=== PATIENT | female | born 2000 | race Two or more races ===

== ENCOUNTER 2020-12-11 11:59 | Emergency (ER) | payer SELFPAY ==
[~2020-12-11] VITALS: Ht 149.9 cm; Wt 63.6 kg
[2020-12-11] MEDS ORDERED: IV NORMAL SALINE 1000ML BAG 1,000 ML IV SCH (13:30)
[2020-12-11] MEDS ORDERED: FAMOTIDINE 20 MG/2 ML VIAL IVP ONE (13:30)
[2020-12-11 13:36] LABS: BILIRUBIN,URINE NEGATIVE (NEG); CLARITY,URINE CLEAR; COLOR,URINE YELLOW; NITRITE,URINE NEGATIVE (NEG); PH,URINE 7.5 (<5.0-8.0); PROTEIN,URINE NEGATIVE (NEG-TRACE); UROBILINOGEN,URINE 0.2 mg/dL (0.2 mg/dL)
[2020-12-11 13:47] LABS: BACTERIA,URINE 0 /HPF (0-FEW); RBC,URINE 0 /HPF (0-2); WBC,URINE OCC /HPF (0-4)
--- NOTE | 2020-12-11 13:57 | PHYS DOC ---
Past Medical History Past Medical History: GERD ([facility] [employer]) Past Surgical History: No Surgical History (SIOBHAN TADEO APRN) Smoking Status: Never Smoker Alcohol Use: None (SIOBHAN TADEO APRN) General Adult EDM: Chief Complaint: ABDOMINAL PAIN HPI: HPI: Patient is a 20 year old female who presents with for the last 10 months she has had off-and-on intermittent cramping epigastric pain that radiates to the left abdomen around to her back. She states it sometimes wakes her up out of her sleep and can happen at any moment. She states eating does not necessarily make it hurt. Patient states that when she was she was on medication for acid reflux. She stated that this pain started after she stopped taking that medication. She states that at times she will get nauseated with it too. She states that she is also worried because she has not had a since September. She is not on any kind of controls. She states that this time she has no pain. Patient denies fever, urinary symptoms, dizziness, headache, chest pain, shortness of air, vomiting, diarrhea, constipation, drug use, alcohol use. ([facility] [employer]) Review of Systems: Review of Systems: Constitutional: Denies fever or chills. [] Eyes: Denies change in visual acuity. [] HENT: Denies nasal congestion or sore throat. [] Respiratory: Denies cough or shortness of breath. [] Cardiovascular: Denies chest pain or edema. [] GI: + abdominal pain, +nausea, denies vomiting, bloody stools or diarrhea. [] : Denies dysuria. + No period since September[] Musculoskeletal: +Left mid back pain or denies joint pain. [] Integument: Denies rash. [] Neurologic: Denies headache, focal weakness or sensory changes. [] Endocrine: Denies polyuria or polydipsia. [] Lymphatic: Denies swollen glands. [] Psychiatric: Denies depression or anxiety. [] ([facility]OB[facility]AN TADEO APRN) Heart Score: Risk Factors: Risk Factors: DM, Current or recent (<one month) smoker, HTN, HLP, family history of CAD, obesity. Risk Scores: Score 0 - 3: 2.5% MACE over next 6 weeks - Discharge Home Score 4 - 6: 20.3% MACE over next 6 weeks - Admit for Clinical Observation Score 7 - 10: 72.7% MACE over next 6 weeks - Early Invasive Strategies (SIOBHAN TADEO APRN) Current Medications: Current Medications Medications (Trade) Dose Ordered Sig/Laith Start Time Stop Time Status Last Admin Dose Admin Famotidine (Pepcid Vial) 20 mg 1X ONCE 12/11/20 13:30 12/11/20 13:32 DC Sodium Chloride 1,000 ml @ 1,000 mls/hr Q1H 12/11/20 13:30 12/11/20 14:29 (SIOBHAN TADEO APRN) Allergies: Allergies: Allergies Coded Allergies Type Severity Reaction Last Updated Verified No Known Drug Allergies 12/11/20 No (SIOBHAN TADEO APRN) Physical Exam: PE: Constitutional: Well developed, well nourished, no acute distress, non-toxic appearance. [] HENT: Normocephalic, atraumatic, bilateral external ears normal, oropharynx moist, no oral exudates, nose normal. [] Eyes: PERRLA, EOMI, conjunctiva normal, no discharge. [] Neck: Normal range of motion, no tenderness, supple, no stridor. [] Cardiovascular:Heart rate regular rhythm, no murmur [] Lungs & Thorax: Bilateral breath sounds clear to auscultation [] Abdomen: Bowel sounds normal, soft, epigastric tenderness, no masses, no p ulsatile masses. [] Skin: Warm, dry, no erythema, no rash. [] Back: No tenderness, no CVA tenderness. [] Extremities: No tenderness, no cyanosis, no clubbing, ROM intact, no edema. [] Neurologic: Alert and oriented X 3, normal motor function, normal sensory function, no focal deficits noted. [] Psychologic: Affect normal, judgement normal, mood normal. [] (SIOBHAN TADEO APRN) Current Patient Data: Labs: Laboratory Tests Test 12/11/20 13:14 12/11/20 13:17 Urine Collection Type Unknown Urine Color Yellow Urine Clarity Clear Urine pH 7.5 (<5.0-8.0) Urine Specific Elton 1.020 (1.000-1.030) Urine Protein Negative mg/dL (NEG-TRACE) Urine Glucose (UA) Negative mg/dL (NEG) Urine Ketones (Stick) Negative mg/dL (NEG) Urine Blood Negative (NEG) Urine Nitrite Negative (NEG) Urine Bilirubin Negative (NEG) Urine Urobilinogen Dipstick 0.2 mg/dL (0.2 mg/dL) Urine Leukocyte Esterase Negative (NEG) Urine RBC 0 /HPF (0-2) Urine WBC Occ /HPF (0-4) Urine Squamous Epithelial Cells Mod /LPF Urine Bacteria 0 /HPF (0-FEW) Urine Mucus Slight /LPF POC Urine HCG, Qualitative Hcg negative (Negative) Vital Signs: Vital Signs Date Time Temp Pulse Resp B/P (MAP) Pulse Ox O2 Delivery O2 Flow Rate FiO2 12/11/20 13:12 97.6 79 18 120/84 (96) 99 Room Air 97.6 (SIOBHAN TADEO APRN) EKG: EKG: [] (SIOBHAN TADEO APRN) Radiology/Procedures: Radiology/Procedures: [] Impression: [facility] [address] [place] [address] IMAGING REPORT Signed PATIENT: GUDELIA CARMONA ACCOUNT: [id number] : 2000 LOCATION: ER AGE: 20 SEX: F EXAM STATUS: REG ER ORD. PHYSICIAN: SIOBHAN TADEO APRN REASON: epigastric pain that wraps around to back PROCEDURE: CT ABD PELV W/ IV CONTRST ONLY EXAM: CT Abdomen and Pelvis with IV contrast INDICATION: Reason: epigastric pain that wraps around to back / Spl. Instructions: INJ 75ML OMNI 300 / History: TECHNIQUE: Multi-detector row CT images were acquired from the lung bases through the abdomen and pelvis with the use of IV contrast. Sagittal and coronal images were acquired from the transaxial data. All CT scans performed at this facility utilize dose optimization techniques as appropriate to the exam, including the following: Automated exposure control and adjustment of the mA and/or KV according to patient size (this includes techniques or standardized protocols for targeted exams where dose is indication/reason for exam). IV CONTRAST: Administered ORAL CONTRAST: none COMPARISON: None FINDINGS: LOWER CHEST: Unremarkable LIVER: Unremarkable BILIARY SYSTEM: Gallbladder is unremarkable. Bile ducts are not dilated. PANCREAS: Unremarkable SPLEEN: Unremarkable ADRENALS: Unremarkable KIDNEYS & URETERS: Unremarkable BLADDER: Unremarkable REPRODUCTIVE ORGANS: Unremarkable GASTROINTESTINAL: Small hiatal hernia. Stomach and large bowel are otherwise unremarkable. The small bowel shows subtle mucosal hyperemia with borderline wall thickening, best appreciated in the small bowel loops deep to the umbilicus with minimal mesenteric misting. The appendix is normal. MESENTERY/PERITONEUM/RETROPERITONEUM: Unremarkable VASCULAR: Unremarkable LYMPH NODES: No adenopathy OSSEOUS & SOFT TISSUES: Unremarkable IMPRESSION: Findings suggestive of mild small bowel enteritis, possible regional enteritis. Correlate for any evidence of inflammatory bowel disease. No bowel obstruction or perforation. No other acute findings in the abdomen or pelvis Electronically signed by: Jose Guadalupe Stoner MD (12/11/2020 2:52 PM) [id number] DICTATED and SIGNED BY: JSOE GUADALUPE STONER MD DATE: 12/11/20 [id number] ([facility]AN T[facility] APRN) Course & Med Decision Making: Course & Med Decision Making Pertinent Labs and Imaging studies reviewed. (See chart for details) See HPI. Alert oriented x4. Speaks in full complete sentences. Ambulatory with a steady gait. Skin pink warm and dry. Abdomen is soft and slightly tender to the epigastric area. Vital signs are within normal limits. She is afebrile. No CVA tenderness. CT shows a hiatal hernia which is probably causing some of her pain and its most likely GERD. CT also shows some enteritis. Patient can follow-up with a GI doctor. Patient is stable and in no distress. Patient is p.o. challenge and has no complication. Lab work is u nremarkable. Urinalysis shows no infection. [] (SIOBHAN TADEO APRN) Dragon Disclaimer: Dragon Disclaimer: This electronic medical record was generated, in whole or in part, using a voice recognition dictation system. (SIOBHAN TADEO APRN) Departure Departure Impression: Primary Impression: Hiatal hernia Additional Impressions: GERD (gastroesophageal reflux disease) Qualified Codes: K21.9 - Gastro-esophageal reflux disease without esophagitis Enteritis Disposition: 01 DC HOME SELF CARE/HOMELESS Condition: STABLE Referrals: RAMONA MARIN MD Patient Instructions: Diet for Gastroesophageal Reflux Disease, Adult, Gastroes ophageal Reflux Disease, Adult, Hiatal Hernia Additional Instructions: I have referred you to a gastrointestinal doctor. Take the medication as it is prescribed. Drink plenty of fluids. Scripts Famotidine (PEPCID) 20 Mg Tablet 20 MG PO BID, #60 TAB Prov: SIOBHAN TADEO APRN 12/11/20 Attending Signature Attending Signature I have reviewed the PA/T[employer] CLEAN[employer] SUPERVISOR's note and plan of care. I was available for consultation as needed during the patient's visit in the emergency department. I agree with the clinical impression, plan, and disposition. (JAVIER TOMAS DO) SIOBHAN TADEO APRN Dec 11, 2020 13:57 JAVIER TOMAS DO Dec 12, 2020 18:53
[2020-12-11 14:00] LABS: BASO % 0 % (0-3); EOS % 0 % (0-3); HEMATOCRIT 46.7 % (36.0-47.0); HEMOGLOBIN 16.2 g/dL (12.0-15.5); LYMPH # 1.1 x10^3/uL (1.0-4.8); LYMPH % 11 % (24-48); MEAN CORPUSCULAR HEMOGLOBIN 31 pg (25-35); MEAN CORPUSCULAR HGB CONC 35 g/dL (31-37); MEAN CORPUSCULAR VOLUME 89 fL (79-100); MONO # 0.5 x10^3/uL (0.0-1.1); MONO % 5 % (0-9); NEUT # 9.1 x10^3/uL (1.8-7.7); NEUT % 84 % (31-73); PLATELET COUNT 279 x10^3/uL (140-400); RED BLOOD COUNT 5.27 x10^6/uL (3.50-5.40); RED CELL DISTRIBUTION WIDTH 12.8 % (11.5-14.5); WHITE BLOOD COUNT 10.7 x10^3/uL (4.0-11.0)
[2020-12-11 14:15] LABS: CALCIUM 9.4 mg/dL (8.5-10.1); CREATININE 0.8 mg/dL (0.6-1.0); GFR 90.5
[2020-12-11 14:16] LABS: ALBUMIN 3.9 g/dL (3.4-5.0); TOTAL BILIRUBIN 0.3 mg/dL (0.2-1.0); TOTAL PROTEIN 7.8 g/dL (6.4-8.2)
[2020-12-11] MEDS ORDERED: CONTRAST GIVEN. MC PRN (14:30)
[2020-12-11] MEDS ORDERED: IOHEXOL 300 MG/ML 100ML VIAL. IV ONE (14:30)
--- NOTE | 2020-12-11 14:54 | RAD ---
EXAM: CT Abdomen and Pelvis with IV contrast INDICATION: Reason: epigastric pain that wraps around to back / Spl. Instructions: INJ 75ML OMNI 300 / History: TECHNIQUE: Multi-detector row CT images were acquired from the lung bases through the abdomen and pel vis with the use of IV contrast. Sagittal and coronal images were acquired from the transaxial data. All CT scans performed at this facility utilize dose optimization techniques as appropriate to the ex am, including the following: Automated exposure control and adjustment of the mA and/or KV according to patient size (this includes techniques or standardized protocols for targeted exams where dose is indication/reason for exam). IV CONTRAST: Administered ORAL CONTRAST: none COMPARISON: None FINDINGS: LOWER CHEST: Unremarkable LIVER: Unremarkable BILIARY SYSTEM: Gallbladder is unremarkable. Bile ducts are not dilated. PANCREAS: Unremarkable SPLEEN: Unremarkable ADRENALS: Unremarkable KIDNEYS & URETERS: Unremarkable BLADDER: Unremarkable REPRODUCTIVE ORGANS: Unremarkable GASTROINTESTINAL: Small hiatal hernia. Stomach and large bowel are otherwise unremarkable. The small bowel shows subtle mucosal hyperemia with borderline wall thickening, best appreciated in the small b owel loops deep to the umbilicus with minimal mesenteric misting. The appendix is normal. MESENTERY/PERITONEUM/RETROPERITONEUM: Unremarkable VASCULAR: Unremarkable LYMPH NODES: No adenopathy OSSEOUS & SOFT TISSUES: Unremarkable IMPRESSION: Findings suggestive of mild small bowel enteritis, possible regional enteritis. Correlate for any bettye dence of inflammatory bowel disease. No bowel obstruction or perforation. No other acute findings in the abdomen or pelvis Electronically signed by: Sandra Stoner MD (12/11/2020 2:52 PM) [id number]
[2020-12-11] MEDS ORDERED: FAMO-63 PO (15:19)
[2020-12-11 15:50] VITALS: BP 118/67
== END 2020-12-11 15:58 | disposition home or self-care (01) ==
LOC: ER 11:59
DX: K21.9 Gastro-esophageal reflux disease without esophagitis (principal); K44.9 Diaphragmatic hernia without obstruction or gangrene; R10.13 Epigastric pain; R11.0 Nausea; M54.5 Low back pain
CPT/HCPCS: 36415; 74177; 80053; 81001; 81025; 83690; 85025; 96361; 96374; 99285; J3490; J7030; Q9967